=== PATIENT | female | born 1995 | race Two or more races ===

== ENCOUNTER 2022-07-27 05:12 | Emergency (ER) | payer MEDICAID ==
[~2022-07-27] VITALS: Ht 167.6 cm; Wt 120.0 kg
[2022-07-27 05:12] VITALS: BP 138/80
[2022-07-27] MEDS ORDERED: AUG875T PO (07:15)
== END 2022-07-27 07:23 | disposition home or self-care (01) ==
LOC: ER 05:12
DX: H66.91 Otitis media, unspecified, right ear (principal); J06.9 Acute upper respiratory infection, unspecified